=== PATIENT | male | born 1985 | race Caucasian/White ===

== ENCOUNTER 2016-12-09 18:37 | Emergency (ER) | payer OTHER ==
[2016-12-09 18:46] VITALS: RESP 18; TEMP 97.9
--- NOTE | 2016-12-09 18:46 | ED ---
Overdose HPI - General Chief Complaint: Overdose Stated Complaint: overdose Time Seen by Provider: 12/09/16 18:38 Source: RN notes reviewed, old records reviewed - History of Present Illness Initial Comments: Physical 30-year-old male presents emergency Department via EMS chief complaint of overdose. Patient was found by his mother and was unresponsive. At that time EMS was called and patient did have diminished breathing, patient was hypoxic. That time EMS delivered with assisted ventilations and started an IV. Patient was given 2 mg Narcan in became alert and oriented right away. Patient states that he has history of heroin abuse. He states these are been to this hospital and has been transferred to [facility] the patient in the past. Patient states this is not an intentional overdose, he states that he has not suicidal thoughts. Patient reports this had no fever or chills, denies any chest pain or shortness of breath. EMS reports he did have a couple episodes of vomiting when they gave him the Narcan however they gave him Zofran and it subsided afterwards. Patient has a history of right knee surgery. - Related Data Home Medications Medication Instructions Recorded Confirmed Buprenorphine HCl/Naloxone HCl 1 film SL BID 12/09/16 12/09/16 [Suboxone 8 mg-2 mg Sl Film] Allergies Allergy/AdvReac Type Severity Reaction Status Date / Time No Known Allergies Allergy Unverified 12/09/16 18:57 Review of Systems ROS Statement: Those systems with pertinent positive or pertinent negative responses have been documented in the HPI. ROS Other: All systems not noted in ROS Statement are negative. General Exam - General Exam Comments Initial Comments: This is a 30-year-old male. Patient is alert and oriented. Patient is on appear to be in any acute distress. General appearance: alert, in no apparent distress Head exam: Present: atraumatic, normocephalic, normal inspection Eye exam: Present: normal appearance, PERRL, EOMI. Absent: scleral icterus, conjunctival injection, periorbital swelling ENT exam: Present: normal exam, mucous membranes moist Neck exam: Present: normal inspection. Absent: tenderness, meningismus, lymphadenopathy Respiratory exam: Present: normal lung sounds bilaterally. Absent: respiratory distress, wheezes, rales, rhonchi, stridor Cardiovascular Exam: Present: regular rate, normal rhythm, normal heart sounds. Absent: systolic murmur, diastolic murmur, rubs, gallop, clicks GI/Abdominal exam: Present: soft, normal bowel sounds. Absent: distended, tenderness, guarding, rebound, rigid Extremities exam: Present: normal inspection, full ROM, normal capillary refill. Absent: tenderness, pedal edema, joint swelling, calf tenderness Back exam: Present: normal inspection Neurological exam: Present: alert, oriented X3, CN II-XII intact Psychiatric exam: Present: normal affect, normal mood Skin exam: Present: warm, dry, intact, normal color. Absent: rash Course Vital Signs 12/09/16 12/09/16 18:43 19:46 Temperature 97.9 F Pulse Rate 87 76 Respiratory 18 18 Rate Blood Pressure 127/69 137/82 O2 Sat by Pulse 99 97 Oximetry Medical Decision Making - Medical Decision Making Physical 30-year-old male presents emergency Department via EMS chief complaint of overdose. Patient was found by his mother and was unresponsive. At that time EMS was called and patient did have diminished breathing, patient was hypoxic. That time EMS delivered with assisted ventilations and started an IV. Patient was given 2 mg Narcan in became alert and oriented right away. Patient states that he has history of heroin abuse. He states these are been to this hospital and has been transferred to [facility] the patient in the past. Patient was alert and oriented during entire 1.5 hours, discussed that patient is unlikely to rebound at this time due to his recent heroin abuse. Patient states that he was on suboxone for heroin abuse, but was kicked out of the suboxone program a few days ago after failing a drug screen. Patient stats that he could not receive subuxone, so he returned to heroin. Patient reports he started heroin due to right knee pain after sport injury. Patient will be given referral to pain management, discussed I will not give prescription for suboxone , and do not know any providers that do. Patient will be discharged at this time. Return parameters dsicussed. Disposition Clinical Impression: Accidental overdose of heroin Disposition: HOME SELF-CARE Condition: Good Instructions: Opioid Overdose (ED) Additional Instructions: All up with primary care provider and pain management physician. Return if there is any worsening signs or symptoms occur. Referrals: Rea Ojeda MD [Primary Care Provider] - 1-2 days Montse Mayes MD [STAFF PHYSICIAN] - 1-2 days Time of Disposition: 20:12
[2016-12-09 20:45] VITALS: BP 137/82; PULSE 76
== END 2016-12-09 20:30 | disposition home or self-care (01) ==
LOC: EC 18:37
DX: T40.1X1A Poisoning by heroin, accidental (unintentional), initial encounter (principal); Z79.891 Long term (current) use of opiate analgesic
CPT/HCPCS: 99284